=== PATIENT | female | born 1995 | race Caucasian/White ===

== ENCOUNTER 2017-05-18 15:38 | Day surgery (SDC) | payer MEDICAID, OTHER ==
[~2017-05-18] VITALS: Ht 162.6 cm; Wt 72.6 kg
--- NOTE | 2017-05-18 18:05 | NUR ---
05/18/171804 Krystal Blank PT ARRIVES TO PACU WITH ARIWAY SUPPORT.
--- NOTE | 2017-05-18 18:50 | NUR ---
PATIENT ARRIVED TO FLOOR VIA STRETCHER. REPORT RECEIVED FROM PACU NURSE DENIS. PATIENT DENIES PAIN, NO DIFFICULTY SWALLOWING. PATIENT TOLERATED PUDDING AND WATER. IV SITE WNL.
--- NOTE | 2017-05-29 18:42 | OR ---
[facility] [address], [place] [address] Signed DATE OF OPERATION: 05/18/2017 SURGEON: Du Modi MD PREOPERATIVE DIAGNOSIS: Esophageal and gastric foreign bodies. POSTOPERATIVE DIAGNOSIS: Esophageal and gastric foreign bodies. PROCEDURE: Upper endoscopy with foreign body removal x2. ESTIMATED BLOOD LOSS: None. FINDINGS: Ximena had two pieces of her black hair comb in her esophagus and one in the antrum. Both were easily removed. INDICATIONS: Ximena is a 22-year-old female at our local [facility]. Earlier today, she tore half of a black comb apart and swallowed two pieces. She was therefore brought to our local emergency room for evaluation. She had no increased work of breathing or shortness of breath. I was asked to see her as a general surgeon residential concierge. I met with Ms. Bueno in the emergency room and I explained to her the above findings. I also reviewed with her upper endoscopy. She understands there is risk including but not limited to gas bloating, crampy abdominal pain, bleeding, perforation requiring surgery, and missed diagnosis. She also understands the occasional need for a laparotomy to remove foreign bodies. We also reviewed the need for IV conscious sedation. Given her current situation and need for airway control, we asked an anesthesia provider to help us with increased monitoring and sedation, particularly with the general endotracheal tube and anesthetic gas. She has expressed understanding and wished to proceed. PROCEDURE NOTE: Ximena was taken into our endoscopy suite and placed in the supine semi-recumbent position. She was placed under general endotracheal tube anesthesia per our nurse solar energy engineer. The adult gastroscope was introduced carefully and in her mid esophagus, we found the first piece of the black comb. We grabbed a hold of the tooth on the comb with our biopsy forceps, and we brought that out through the posterior oropharynx and we Electronically Signed By: DU MODI MD 05/29/17 1842 PATIENT NAME: XIMENA LAWRENCE OPERATIVE REPORT DATE OF : 89 PHYSICIAN: DU MODI MD REPORT #: [id number] REPORT IS CONFIDENTIAL AND NOT TO BE RELEASED WITHOUT AUTHORIZATION [facility] [address], [place] [address] Signed capture it with our Cesar forceps and removed it completely. The adult gastroscope was reintroduced and we examined the posterior oropharynx and down through the esophagus and out in the stomach. The second piece of the comb was in the antrum. We grabbed one tooth of the comb with our snare, and we brought it up all the way through the esophagus in the posterior oropharynx and out onto the table. The gastroscope was reintroduced again and the posterior oropharynx examined and then down the esophagus through the stomach out into the duodenum. The duodenum, pyloric channel, and esophagus were unremarkable other than a little bit of a superficial abrasion in the antrum and in the esophagus. After this, the gas was suctioned out and the gastroscope removed. Ximena tolerated the procedure quite well. RECOMMENDATIONS: Ximena will return to the [facility]. She can follow up my office as needed. Du Modi MD ALB/MODL /[id number] cc: [facility] Du Modi MD Electronically Signed By: DU MODI MD 05/29/17 1842 PATIENT NAME: XIMENA LAWRECNE OPERATIVE REPORT DATE OF : 89 PHYSICIAN: DU MODI MD REPORT #: [id number] REPORT IS CONFIDENTIAL AND NOT TO BE RELEASED WITHOUT AUTHORIZATION
--- NOTE | 2017-05-29 18:42 | CONS ---
[facility] [address], [place] [address] Signed DATE OF CONSULTATION: 05/18/2017 CHIEF COMPLAINT: Esophageal foreign body. HISTORY OF PRESENT ILLNESS: Lacey is a 22-year-old female from [place], [place]. She has been in [facility] the last 30 days with her father living in [place], [place]. She is now in our [facility], decided to swallow half of a small black comb. Consequently, I was asked to see her as a general surgeon instrumentation supervisor. In the meantime, she is doing fine. She maintains her airway quite nicely. Does not seem to be in any excessive pain. When I asked her where she thought the comb may have stopped, she is not able to tell me. PAST MEDICAL HISTORY: None. PAST SURGICAL HISTORY: Multiple teeth surgeries and infections. SOCIAL HISTORY: She likes to smoke each day. She likes methamphetamine. She likes to drink. She has a boyfriend and has two children. She and her mother live in [place], [place], but her father lives in [place] at [phone]. She has no primary care provider. She has no preferred pharmacy. FAMILY HISTORY: Dad had a stroke. Mom is healthy. REVIEW OF SYSTEMS: She had 10 systems reviewed and generally healthy young lady. ALLERGIES: None. MEDICATIONS: None. PHYSICAL EXAMINATION: VITAL SIGNS: Her blood pressure is 136/93, heart rate is 104, respiratory rate 16, temperature is 98.5. She is 99% on room air. She is 5 feet 4 inches and 72 kg. GENERAL: Lacey is a 22-year-old female who appears healthy and at her stated age. Her officer is with her today. She appears a little anxious. However, her voice is perfectly fine. Electronically Signed By: DU MODI MD 05/29/17 1842 PATIENT NAME: LACEY LAWRENCE CONSULTATION DATE OF : 89 PHYSICIAN: DU MODI MD REPORT #: [id number] REPORT IS CONFIDENTIAL AND NOT TO BE RELEASED WITHOUT AUTHORIZATION [facility] [address], [place] [address] Signed RESPIRATORY: She has no trouble with her airway. Her lungs are generally clear to auscultation bilaterally. HEART: Regular rate and rhythm. ABDOMEN: Soft, nontender. LABS: None. X-RAYS: None. ASSESSMENT AND PLAN: Lacey is a 22-year-old female who has, what is most likely, an esophageal foreign body, but it could be a gastric foreign body, consisting of 1/2 of a small black comb. I explained to Lacey that we need to take her down to our endoscopy suite and we will run the gastroscope down her posterior oropharynx, her esophagus, and her stomach and see if we can find the comb and removed it. Occasionally, foreign bodies will exit the stomach and we let them pass through the small bowel unless they get caught. Once in a while, we do have to operate to remove the foreign bodies. I have reviewed this with Lacey in detail. She understands upper endoscopy. She understands there is risk including, but not limited to gas, bloating, crampy abdominal pain, bleeding, perforation requiring surgery, and the possible need for additional procedures. She has expressed understanding and wished to proceed. Du Modi MD ALB/MODL /[id number] cc: Du Modi MD Electronically Signed By: DU MODI MD 05/29/17 1842 PATIENT NAME: LACEY LAWRENCE CONSULTATION DATE OF : 89 PHYSICIAN: DU MODI MD REPORT #: [id number] REPORT IS CONFIDENTIAL AND NOT TO BE RELEASED WITHOUT AUTHORIZATION
== END 2017-05-18 19:25 | disposition home or self-care (01) ==
LOC: ED 15:38 → MS 18:20 → ED 18:20 → DS 18:20 → MS 19:25 → DS 19:25 → MS 19:25
PROVIDERS: Colon & Rectal Surgery
PROC: 0DC68ZZ Extirpation of Matter from Stomach, Via Natural or Artificial Opening Endoscopic (ICD-10-PCS; 2017-05-18)
PROC: 0DC28ZZ Extirpation of Matter from Middle Esophagus, Via Natural or Artificial Opening Endoscopic (ICD-10-PCS; principal; 2017-05-18 17:26)
DX: T18.198A Other foreign object in esophagus causing other injury, initial encounter (principal); T18.2XXA Foreign body in stomach, initial encounter; F17.200 Nicotine dependence, unspecified, uncomplicated
CPT/HCPCS: 00740; 99285; J0330; J2405; J2704; J7030